=== PATIENT | male | born 1955 | race Caucasian/White ===

== ENCOUNTER → 2016-09-08 | Outpatient (CLI) | payer OTHER ==
[2016-09-08] VITALS (12 sets, daily range): BP systolic 122–138; BP diastolic 65–84
[~2016-09-08] VITALS: Ht 172.7 cm; Wt 69.4 kg
[~2016-09-08] MED LIST: ASPI325T4 PO; ASPI81TA9 PO; ASPIRIN 325 MG TABLET ONE; ASPIRIN 325 MG TABLET PO ONE; ATOR10TA60 PO; ATOR40TA59 PO; CARV6.252 PO; CONTRAST GIVEN MC PRN; FURO20TA3 PO; FURO40TA4 PO; HEPA100D36 SQ; HEPARIN for ARTERIAL LINE 1,500 ML ONE; HEPARIN for IV BOLUS 10,000 UNIT/10 ML VIAL. IV ONE; HEPARIN for IV BOLUS 10,000 UNIT/10 ML VIAL. ONE; IODIXANOL 320 MG/ML 100 ML VIAL. IART ONE; IODIXANOL 320 MG/ML 100 ML VIAL. ONE; LIDOCAINE 2% 20 ML VIAL. IJ ONE; LIDOCAINE 2% 20 ML VIAL. ONE; LISI-338 PO; LISI2.5T PO; METO25TA9 PO; MIDAZOLAM HCL/PF 2 MG/2 ML VIAL. IV ONE; MIDAZOLAM HCL/PF 2 MG/2 ML VIAL. ONE; NITR0.4T6 SL; NITROGLYCERIN 200 MCG/2 ML SYRINGE FOR CATH/VASC LAB. ICAR ONE; NITROGLYCERIN 200 MCG/2 ML SYRINGE FOR CATH/VASC LAB. ONE; POTA20TA12 PO; PRAS10TA9 PO; PROTAMINE 50 MG/5 ML VIAL. IV ONE; SPIR25TA PO; VERAPAMIL 5 MG/2 ML VIAL. ONE; fentaNYL PF VIAL 100 MCG/2 ML VIAL IV ONE; fentaNYL PF VIAL 100 MCG/2 ML VIAL ONE
[2016-09-08 07:46] LABS: CALCIUM 9.3 mg/dL (8.5-10.1); CREATININE 1.2 mg/dL (0.7-1.3); GFR 61.3; POTASSIUM 4.8 mmol/L (3.5-5.1)
[2016-09-08 08:15] LABS: BASO % 1 % (0-3); EOS % 3 % (0-3); HEMATOCRIT 50.2 % (39.0-53.0); HEMOGLOBIN 16.8 g/dL (13.0-17.5); LYMPH % 29 % (24-48); MEAN CORPUSCULAR HEMOGLOBIN 33 pg (25-35); MEAN CORPUSCULAR HGB CONC 34 g/dL (31-37); MEAN CORPUSCULAR VOLUME 97 fL (79-100); MONO % 12 % (0-9); NEUT % 55 % (31-73); PLATELET COUNT 223 x10^3/uL (140-400); RED BLOOD COUNT 5.19 x10^6/uL (4.30-5.70); RED CELL DISTRIBUTION WIDTH 13.1 % (11.5-14.5); WHITE BLOOD COUNT 6.3 x10^3/uL (4.0-11.0)
[2016-09-08 08:16] LABS: BASO # 0.1 x10^3/uL (0.0-0.2); LYMPH # 1.8 x10^3/uL (1.0-4.8)
--- NOTE | 2016-09-08 11:08 | CARD ---
APPROVED REPORT Procedure(s) performed: Left Heart Catheterization FFR RCA 5.8 MINS FLUORO 485mGy 128 visipaque HISTORY : The patient is a 61 year-old male with a history of . INDICATION The indication(s) include : unstable angina , dyspnea, Patient is a pleasant 61-year-old male who has had progressive dyspnea over the last 4 weeks in the setting of a prior left main and RCA stent. He was evaluated by his PCP who felt that he had unstable angina and therefore after confirming his symp toms he was brought to the catheterization laboratory for evaluation of his symptoms.. PROCEDURE NARRATIVE The patient was brought electively to the cardiac catheterization lab. A timeout was performed confi rming the patient's name, date of , procedure, and site of procedure. All necessary personnel w ere wearing the appropriate protective equipment and radiation monitor devices. After explaining the risks and benefits of the procedure and alternatives, informed consent was obtained. (See nursing no cherelle for medications administered). The right groin was sterilely prepped and draped in the usual fas hion. The right groin was infiltrated with 10 mL of 2% lidocaine for subcutaneous anesthesia. A 6 F sheath was inserted into the right femoral artery without difficulty. Right and left coronary angio graphy was performed using a 6Fr JR4 and JL4 catheter. Left ventricular end diastolic pressure was ob tained with a pigtail catheter and pullback was performed after left ventriculography. HEMODYNAMICS: LVEDP 12 mm Hg No gradient on LV to aortic pullback. LEFT VENTRICULOGRAM: EF 25%, Severe global hypokinesis with diaphragmatic akinesis. CORONARY ANGIOGRAPHY: LM is a large caliber vessel with a patent ostial/body stent. LAD is a large caliber vessel with mild luminal irregularities. D1 is a small to moderate caliber vessel with normal angiographic apeparance. LCx is a moderate caliber non-dominant vessel with mild luminal irregularities. OM1 is a moderate caliber vessel with normal angiographic appearance. RCA is a moderate caliber dominant vessel with a patent mid stent. The distal stent edge has an eccen tric 50-70% stenosis. RPDA and RPL are small caliber vessels with normal angiographic appearance. INTERVENTIONAL TECHNIQUE: FFR of the RCA Heparin was administered for anticoagulation. Through a 6Fr JR4 guide catheter, a 0.014'' Verrata pre ssure wire was advanced to the distal RCA after appropriate normalization in the aorta. An iFR was me asured at 0.93. Given the significant cardiomyopathy out of proportion to the degree of coronary dise ase and the negative iFR study, further intervention was deferred. At case completion, the right groi n sheath was removed and initial hemostasis was unsuccessful due to balloon rupture of the Mynx Aaron d evice, therefore, manual pressure was held for 30 minutes and 25mg of protamine was administered to r everse the heparin. The patient tolerated his procedure well and there were no immediate complication s. Conclusion 1. Normal left sided filling pressures. 2. Severe LV dysfunction. EF 25% 3. Patent LM stent and RCA stent. 4. Intermediate disease in the RCA that is physiologically not significant based on negative iFR of 0 .92. Recommendations Smoking cessation therapy Unclear what patient compliance is with meds, discussed need for strict adherence. Will need close f/u in the office to discuss possible defibrillator etc. Patient has not gone to cardiac rehab.
== END | disposition home or self-care (01) ==
LOC: CCL 07:01
PROVIDERS: ATTEND Internal Medicine Cardiovascular Disease
DX: I20.0 Unstable angina (principal); E78.00 Pure hypercholesterolemia, unspecified; I10 Essential (primary) hypertension; F41.9 Anxiety disorder, unspecified; F32.9 Major depressive disorder, single episode, unspecified; Z79.01 Long term (current) use of anticoagulants
CPT/HCPCS: 36415; 80048; 85027; 85610; 85730; 93458; 93571; C1769; C1771; C1892; J2250; J3010; J3490; G0269

== ENCOUNTER 2017-10-23 13:35 | Inpatient (IN) | payer OTHER ==
[2017-10-23] MEDS: BUMETANIDE 1 MG TABLET. PO (09:00)
[2017-10-23] MEDS ORDERED: clonazePAM 0.5 MG TABLET PO (14:15)
[2017-10-23] MEDS ORDERED: ACETAMINOPHEN 325 MG TABLET. PO (14:15)
[2017-10-23] MEDS ORDERED: ONDANSETRON PF 4 MG/2 ML VIAL. IV (14:15)
[2017-10-23] MEDS ORDERED: NITROGLYCERIN SUBLINGUAL 0.4 MG BOTTLE OF 25. SL (14:15)
[2017-10-23] MEDS: CARVEDILOL 3.125 MG TABLET. PO (16:36)
[2017-10-24 03:49] LABS: ADD MAN DIFF? NO
[2017-10-24 05:00] LABS: BASO # 0.1 x10^3/uL (0.0-0.2); BASO % 1 % (0-3); EOS # 0.1 x10^3/uL (0.0-0.7); EOS % 2 % (0-3); HEMATOCRIT 49.6 % (39.0-53.0); HEMOGLOBIN 16.8 g/dL (13.0-17.5); LYMPH # 1.7 x10^3/uL (1.0-4.8); LYMPH % 22 % (24-48); MEAN CORPUSCULAR HEMOGLOBIN 31 pg (25-35); MEAN CORPUSCULAR HGB CONC 34 g/dL (31-37); MEAN CORPUSCULAR VOLUME 92 fL (79-100); MONO # 0.7 x10^3/uL (0.0-1.1); MONO % 9 % (0-9); NEUT # 5.2 x10^3uL (1.8-7.7); NEUT % 66 % (31-73); PLATELET COUNT 210 x10^3/uL (140-400); RED BLOOD COUNT 5.37 x10^6/uL (4.30-5.70); RED CELL DISTRIBUTION WIDTH 16.2 % (11.5-14.5); WHITE BLOOD COUNT 7.8 x10^3/uL (4.0-11.0)
[2017-10-24 05:10] LABS: ALBUMIN 3.3 g/dL (3.4-5.0); ALBUMIN/GLOBULIN RATIO 0.8 (1.0-1.7); ALK PHOS 101 U/L (46-116); ALT (SGPT) 60 U/L (16-63); ANION GAP 9 (6-14); AST (SGOT) 37 U/L (15-37); BLOOD UREA NITROGEN 32 mg/dL (8-26); BUN/CREATININE RATIO 23 (6-20); CARBON DIOXIDE 29 mmol/L (21-32); CHLORIDE 101 mmol/L (98-107); CHOLESTEROL 221 mg/dL (0-200); CREATININE 1.4 mg/dL (0.7-1.3); GFR 51.2; GLUCOSE 83 mg/dL (70-99); HDLC 36 mg/dL (40-60); LDLC 162 mg/dL (0-100); NON-HDL CHOLESTEROL 185 mg/dL (0-129); POTASSIUM 3.8 mmol/L (3.5-5.1); SODIUM 139 mmol/L (136-145); TOTAL BILIRUBIN 1.4 mg/dL (0.2-1.0); TOTAL PROTEIN 7.6 g/dL (6.4-8.2); TRIGLYCERIDES 114 mg/dL (0-150); VLDLC 23 mg/dL (0-40)
[2017-10-24 05:11] LABS: CHOLESTEROL/HDL RATIO 6.1
[2017-10-24] MEDS ORDERED: LIDOCAINE 2% 20 ML VIAL. (07:06)
[2017-10-24] MEDS ORDERED: IODIXANOL 320 MG/ML 100 ML VIAL. (07:06)
[2017-10-24] MEDS: ASPIRIN ENTERIC COATED 81 MG TABLET.DR. PO (07:21)
[2017-10-24] MEDS: CARVEDILOL 3.125 MG TABLET. PO ×2 (07:21→16:24)
[2017-10-24] MEDS ORDERED: MIDAZOLAM HCL/PF 2 MG/2 ML VIAL. (07:57)
[2017-10-24] MEDS ORDERED: HEPARIN for IV BOLUS 10,000 UNIT/10 ML VIAL. (07:57)
[2017-10-24] MEDS ORDERED: VERAPAMIL 5 MG/2 ML VIAL. (07:57)
[2017-10-24] MEDS ORDERED: fentaNYL PF VIAL 100 MCG/2 ML VIAL (07:57)
[2017-10-24] MEDS ORDERED: NITROGLYCERIN 200 MCG/2 ML SYRINGE FOR CATH/VASC LAB. (07:58)
[2017-10-24] MEDS: IODIXANOL 320 MG/ML 100 ML VIAL. IART (08:45)
[2017-10-24] MEDS: LIDOCAINE 2% 20 ML VIAL. IJ (08:46)
[2017-10-24] MEDS: fentaNYL PF VIAL 100 MCG/2 ML VIAL IV (08:46)
[2017-10-24] MEDS: MIDAZOLAM HCL/PF 2 MG/2 ML VIAL. IV (08:46)
[2017-10-24] MEDS: BUMETANIDE 1 MG TABLET. PO (12:28)
[2017-10-24] MEDS: LISINOPRIL 5 MG TABLET. PO (12:29)
[2017-10-24] MEDS: SPIRONOLACTONE 25 MG TABLET PO (12:29)
[2017-10-24] MEDS: DULoxetine HCL 30 MG CAPSULE.DR PO (12:29)
[2017-10-24] MEDS: PANTOPRAZOLE 40 MG TABLET.DR. PO (16:24)
[2017-10-24] MEDS: CALCIUM CARBONATE 500 MG TAB.CHEW PO (16:24)
[2017-10-25] MEDS: SPIRONOLACTONE 25 MG TABLET PO (09:44)
[2017-10-25] MEDS: DULoxetine HCL 30 MG CAPSULE.DR PO (09:44)
[2017-10-25] MEDS: BUMETANIDE 1 MG TABLET. PO (09:44)
[2017-10-25] MEDS: PANTOPRAZOLE 40 MG TABLET.DR. PO (09:44)
[2017-10-25] MEDS: ASPIRIN ENTERIC COATED 81 MG TABLET.DR. PO (09:44)
[2017-10-25] MEDS: LISINOPRIL 5 MG TABLET. PO (09:45)
[2017-10-25] MEDS: CARVEDILOL 3.125 MG TABLET. PO (09:47)
== END 2017-10-25 14:33 | disposition home or self-care (01) | DRG 281 ==
LOC: 2 SOUTH 13:35
PROC: 4A023N7 Measurement of Cardiac Sampling and Pressure, Left Heart, Percutaneous Approach (ICD-10-PCS; principal; 2017-10-24)
PROC: B2111ZZ Fluoroscopy of Multiple Coronary Arteries using Low Osmolar Contrast (ICD-10-PCS; 2017-10-24)
DX: I21.4 Non-ST elevation (NSTEMI) myocardial infarction (principal); I50.22 Chronic systolic (congestive) heart failure; E78.5 Hyperlipidemia, unspecified; I11.0 Hypertensive heart disease with heart failure; I25.10 Atherosclerotic heart disease of native coronary artery without angina pectoris; I25.5 Ischemic cardiomyopathy; F17.200 Nicotine dependence, unspecified, uncomplicated; J44.9 Chronic obstructive pulmonary disease, unspecified; Z82.49 Family history of ischemic heart disease and other diseases of the circulatory system; Z95.5 Presence of coronary angioplasty implant and graft; Z79.82 Long term (current) use of aspirin; Z79.899 Other long term (current) drug therapy
CPT/HCPCS: 36415; 80053; 80061; 85025; 93458; 93925; 99152; 99153; C1769; C1771; C1892; G0269; J1644; J2001; J2250; J3010